=== PATIENT | female | born 1995 | race Two or more races ===

== ENCOUNTER 2020-08-09 18:22 | Emergency (ER) | payer MEDICAID ==
[~2020-08-09] VITALS: Ht 167.6 cm; Wt 80.0 kg
[2020-08-09] MEDS ORDERED: KETOROLAC 60MG/2ML VIAL IM ONE (18:45)
[2020-08-09 21:11] VITALS: BP 106/61
== END 2020-08-09 21:12 | disposition home or self-care (01) ==
LOC: ER 18:22
DX: S59.801A Other specified injuries of right elbow, initial encounter (principal); S20.319A Abrasion of unspecified front wall of thorax, initial encounter; M54.2 Cervicalgia; V49.49XA Driver injured in collision with other motor vehicles in traffic accident, initial encounter; Y93.89 Activity, other specified; Y92.488 Other paved roadways as the place of occurrence of the external cause
CPT/HCPCS: 71045; 72125; 73080; 96372; 99284; J1885; A4565